=== PATIENT | female | born 1995 | race Caucasian/White ===

== ENCOUNTER 2016-12-22 17:28 | Emergency (ER) | payer MEDICAID ==
[~2016-12-22] VITALS: Ht 172.7 cm; Wt 58.6 kg
[~2016-12-22 17:28] MED LIST: ALBU8.5H5 INH; DIVA500T2 PO; LORA-446 PO; LORAZEPAM PO
[2016-12-22] MEDS ORDERED: SODIUM CHLORIDE 0.9% 1,000ML IV ONE (18:00)
[2016-12-22] MEDS ORDERED: SODIUM CHLORIDE FLUSH 10ML SYR IVF ONE (18:00)
[2016-12-22] MEDS ORDERED: ONDANSETRON 2MG/ML, 2ML IVPush ONE (18:00)
[2016-12-22 18:24] LABS: ASPARTATE AMINO TRANSFERASE 15 U/L (15-37); BLOOD UREA NITROGEN 9 mg/dL (7-18)
[2016-12-22] MEDS ORDERED: ONDANSETRON 2MG/ML, 2ML ONE (18:52)
[2016-12-22] MEDS ORDERED: KETOROLAC 30 MG/1 ML IVPush ONE (19:00)
[2016-12-22] MEDS ORDERED: KETOROLAC 30 MG/1 ML ONE (19:14)
[2016-12-22] MEDS ORDERED: CEFTRIAXONE PMX 1GM/50ML 50 ML ONE (19:53)
[2016-12-22] MEDS ORDERED: CEFTRIAXONE PMX 1GM/50ML 50 ML IV ONE (20:00)
[2016-12-22 20:03] VITALS: BP 109/44
[2016-12-22] MEDS ORDERED: HYDROcodone/APAP 5/325 TABLET ONE (20:20)
[2016-12-22] MEDS ORDERED: HYDROcodone/APAP 5/325 TABLET PO ONE (20:30)
== END 2016-12-22 20:50 | disposition home or self-care (01) ==
LOC: ED 20:15
DX: N10 Acute pyelonephritis (principal); R31.9 Hematuria, unspecified; N39.0 Urinary tract infection, site not specified; G40.909 Epilepsy, unspecified, not intractable, without status epilepticus; J45.909 Unspecified asthma, uncomplicated; Z90.49 Acquired absence of other specified parts of digestive tract; Z87.442 Personal history of urinary calculi; Z97.5 Presence of (intrauterine) contraceptive device
CPT/HCPCS: 36415; 74176; 80053; 81001; 84703; 85025; 87077; 87086; 87186; 96361; 96365; 96375; 99285; J0696; J1885; J2405; J7030

== ENCOUNTER 2019-09-25 12:08 | Emergency (ER) | payer MEDICAID ==
[~2019-09-25] VITALS: Ht 172.7 cm; Wt 66.8 kg
--- NOTE | 2019-09-25 12:25 | NUR ---
EDMD AT BEDSIDE TO EVALUATE AT THIS TIME.
--- NOTE | 2019-09-25 12:25 | NUR ---
FIRST CONTACT WITH PT. PT STATES "I WENT TO THE [facility] THEY CHECKED ME OUT SHE SAID SHE'S ALMOST 100% SURE IT'S MY APPENDIX AND TO COME HERE". RLQ ABD PAIN WITH N/D STARTED 3-4 DAYS AGO. PT'S AOX4. RESPS EVEN AND UNLABORED. BP/SPO2 MONITORS IN PLACE. CALL LIGHT WITHIN REACH.
[2019-09-25 12:55] LABS: BASOPHILS # (AUTO) 0.04 x10^3/uL (0-0.1); BASOPHILS % (AUTO) 1 % (0-1); EOSINOPHILS # (AUTO) 0.14 x10^3/uL (0-0.4); EOSINOPHILS % (AUTO) 2 % (1-7); LYMPHOCYTES # (AUTO) 2.01 x10^3/uL (1-3.4); LYMPHOCYTES % (AUTO) 29 % (22-44); MD NO; MEAN CORPUSCULAR HEMOGLOBIN 33.2 pg (27.0-34.8); MEAN CORPUSCULAR HGB CONC 33.9 g/dL (32.4-35.8); MEAN PLATELET VOLUME 7.4 fL (7.4-10.4); MONOCYTES # (AUTO) 0.79 x10^3/uL (0.2-0.8); MONOCYTES % (AUTO) 11 % (2-9); NEUTROPHILS # (AUTO) 4.02 x10^3/uL (1.8-6.8); NEUTROPHILS % (AUTO) 58 % (42-75); PLATELET COUNT 244 x10^3/uL (130-400); RED BLOOD COUNT 4.45 x10^6/uL (3.82-5.3); RED CELL DISTRIBUTION WIDTH 13.3 % (9.6-15.2)
[2019-09-25 13:06] LABS: ALANINE AMINOTRANSFERASE 17 U/L (12-78); ALBUMIN 3.8 g/dL (3.4-5.0); ANION GAP 6 mmol/L (5-15); CALCIUM 9.2 mg/dL (8.5-10.1); CHLORIDE 106 mmol/L (98-107); CREATININE 0.83 mg/dL (0.55-1.02)
[2019-09-25 13:11] LABS: ALKALINE PHOSPHATASE 85 U/L (45-117); BILIRUBIN,TOTAL 0.4 mg/dL (0.2-1.0); TOTAL PROTEIN 7.8 g/dL (6.4-8.2)
[2019-09-25] MEDS ORDERED: MORPHINE SULFATE 4 MG/ML, 1ML ONE ×2 (13:36→14:55)
[2019-09-25] MEDS ORDERED: ONDANSETRON 2MG/ML, 2ML ONE (13:36)
[2019-09-25] MEDS: MORPHINE SULFATE 4 MG/ML, 1ML IVPush PRN ×2 (13:48→15:32)
--- NOTE | 2019-09-25 13:50 | NUR ---
PT AMB TO BR AND BACK TO ROOM WITH STEADY GAIT.
--- NOTE | 2019-09-25 13:55 | NUR ---
PT MEDICATED PER EMAR. PT TOLERATED WELL.
[2019-09-25] MEDS ORDERED: ONDANSETRON 2MG/ML, 2ML IVPush ONE (14:00)
--- NOTE | 2019-09-25 14:09 | NUR ---
PT TO CT AT THIS TIME.
--- NOTE | 2019-09-25 14:20 | NUR ---
PT BACK TO ROOM FROM CT AT THIS TIME.
[2019-09-25] MEDS ORDERED: OMNIPAQUE 350 MG/ML, 100ML BOTTLE ONE (14:44)
--- NOTE | 2019-09-25 14:56 | NUR ---
PT IN US AT THIS TIME.
--- NOTE | 2019-09-25 15:21 | NUR ---
PT BACK TO ROOM FROM US AT THIS TIME.
--- NOTE | 2019-09-25 15:32 | NUR ---
PT MEDICATED PER EMAR. PT TOLERATED WELL.
[2019-09-25] MEDS ORDERED: KETOROLAC 30 MG/1 ML ONE (15:44)
[2019-09-25] MEDS ORDERED: KETOROLAC 30 MG/1 ML IVPush ONE (16:00)
--- NOTE | 2019-09-25 16:33 | NUR ---
EDMD AT BEDSIDE TO EXPLAIN ALL RESULTS AT THIS TIME.
[2019-09-25 16:37] VITALS: BP 106/70
--- NOTE | 2019-09-25 16:50 | NUR ---
Patient given discharge instructions and they have confirmed that they understand the instructions.
== END 2019-09-25 16:52 | disposition home or self-care (01) ==
LOC: ED 13:15
DX: R10.84 Generalized abdominal pain (principal); R11.0 Nausea; R63.0 Anorexia; J45.909 Unspecified asthma, uncomplicated; F17.200 Nicotine dependence, unspecified, uncomplicated; Z90.49 Acquired absence of other specified parts of digestive tract
CPT/HCPCS: 36415; 74177; 76830; 80053; 83690; 84703; 85025; 96374; 96375; 96376; 99285; J1885; J2270; J2405; Q9967

== ENCOUNTER 2019-12-28 02:37 | Emergency (ER) | payer MEDICAID ==
[~2019-12-28] VITALS: Ht 170.2 cm; Wt 69.0 kg
[2019-12-28 02:46] VITALS: BP 119/69
--- NOTE | 2019-12-28 03:00 | NUR ---
BAR BACK: REDD JACQUES GATHERED ALL BELONGINGS INTO BAG (1) AND PLACED IN LOCKER FOR SAFE KEEPING.
[2019-12-28 03:28] LABS: BASOPHILS # (AUTO) 0.04 x10^3/uL (0-0.1); BASOPHILS % (AUTO) 1 % (0-1); EOSINOPHILS # (AUTO) 0.17 x10^3/uL (0-0.4); EOSINOPHILS % (AUTO) 2 % (1-7); LYMPHOCYTES # (AUTO) 2.71 x10^3/uL (1-3.4); LYMPHOCYTES % (AUTO) 37 % (22-44); MD NO; MEAN CORPUSCULAR HEMOGLOBIN 32.5 pg (27.0-34.8); MEAN CORPUSCULAR HGB CONC 33.4 g/dL (32.4-35.8); MEAN CORPUSCULAR VOLUME 97.4 fL (80-100); MEAN PLATELET VOLUME 7.3 fL (7.4-10.4); MONOCYTES # (AUTO) 0.49 x10^3/uL (0.2-0.8); MONOCYTES % (AUTO) 7 % (2-9); NEUTROPHILS # (AUTO) 3.97 x10^3/uL (1.8-6.8); NEUTROPHILS % (AUTO) 54 % (42-75); PLATELET COUNT 262 x10^3/uL (130-400); RED BLOOD COUNT 4.71 x10^6/uL (3.82-5.3); RED CELL DISTRIBUTION WIDTH 13.9 % (9.6-15.2)
[2019-12-28 03:37] LABS: ALANINE AMINOTRANSFERASE 29 U/L (12-78); ANION GAP 7 mmol/L (5-15); CALCIUM 8.8 mg/dL (8.5-10.1); CHLORIDE 114 mmol/L (98-107); SALICYLATE LEVEL 2.6 mg/dL (2.8-20.0)
[2019-12-28 03:40] LABS: ALKALINE PHOSPHATASE 68 U/L (45-117); BILIRUBIN,TOTAL 0.2 mg/dL (0.2-1.0); CREATININE 0.73 mg/dL (0.55-1.02); TOTAL PROTEIN 7.8 g/dL (6.4-8.2)
[2019-12-28 03:44] LABS: AMPHETAMINE SCREEN, URINE Negative (Negative); BARBITURATE SCREEN, URINE Negative (Negative); BENZODIAZEPINE SCREEN, URINE Positive (Negative); CANNABINOID SCREEN, URINE Negative (Negative); COCAINE SCREEN, URINE Negative (Negative); METHADONE SCREEN, URINE Negative (Negative); OPIATE SCREEN, URINE Negative (Negative)
--- NOTE | 2019-12-28 04:00 | NUR ---
HANDICAPPER HARNESS RACING: SITTER REQUESTED FROM [facility]. PT IN SECURED ROOM WITH CAMERA AT THIS TIME.
--- NOTE | 2019-12-28 04:29 | NUR ---
SLEEPING IN NO ACUTE DISTRESS, EVEN UNLABORED RESPIRATIONS. ROOM SECURED FOR SAFETY.
[2019-12-28] MEDS ORDERED: NEOSPORIN OINT. PKT 1 PACKET ONE (05:30)
--- NOTE | 2019-12-28 05:32 | NUR ---
PT SLEEPING ON GURNEY, NO ACUTE DISTRESS, EVEN AND UNLABORED RESPIRARTIONS. ROOM SECURED FOR SAFETY.
--- NOTE | 2019-12-28 07:02 | NUR ---
REPORT GIVEN TO DARIEN YANEZ.
--- NOTE | 2019-12-28 07:08 | NUR ---
REPORT RECEIVED FROM FERNY YANEZ.
--- NOTE | 2019-12-28 07:58 | NUR ---
PT SLEEPING ON GURNEY, NO ACUTE DISTRESS, EVEN AND UNLABORED RESPIRARTIONS. ROOM SECURED FOR SAFETY. SITTER MONITORING FROM [facility] FOR SAFETY.
--- NOTE | 2019-12-28 08:27 | NUR ---
DIET TRAY ORDERED AT THIS TIME.
--- NOTE | 2019-12-28 09:07 | NUR ---
MEAL TRAY PROVIDED AT THIS TIME.
--- NOTE | 2019-12-28 09:18 | NUR ---
PT'S SISTER'S NUMBER [phone]
--- NOTE | 2019-12-28 09:53 | NUR ---
PT IS NOT ABLE TO DO BRETHALYZER AT THIS TIME.
--- NOTE | 2019-12-28 10:18 | NUR ---
Silva hodges in ED - 12/28/19 at 1019 by ROBERT PER PROTOCOL, INSULIN DRIP RATE IS 6UNITS/HR AT THIS TIME D/T BG 480.
--- NOTE | 2019-12-28 10:39 | NUR ---
ALEXYZER .105 AT THIS TIME.
--- NOTE | 2019-12-28 10:51 | NUR ---
REFERENCE DATA EXPERT AT BEDSIDE TO EVALUATE AT THIS TIME.
--- NOTE | 2019-12-28 10:54 | NUR ---
water provided per request at this time.
--- NOTE | 2019-12-28 11:28 | NUR ---
DIET TRAY ORDERED AT THIS TIME.
[2019-12-28] MEDS ORDERED: DIAZEPAM 2 MG TABLET PO PRN (12:00)
[2019-12-28] MEDS ORDERED: RISPERIDONE 1 MG TABLET PO SCH (12:00)
[2019-12-28] MEDS ORDERED: LAMOTRIGINE 25 MG TABLET PO SCH (12:00)
[2019-12-28] MEDS ORDERED: RISPERIDONE 2 MG TABLET ONE (12:14)
--- NOTE | 2019-12-28 12:16 | NUR ---
MEDICATION ORDERED FROM PHARMACY AT THIS TIME.
--- NOTE | 2019-12-28 12:18 | NUR ---
BRETHALYZER .071 AT THIS TIME.
--- NOTE | 2019-12-28 12:24 | NUR ---
PT MEDICATED PER EMAR. PT TOLERATED WELL. ROOM REMAINS SECURE. SITTER MONITORING FROM [facility] FOR SAFETY.
--- NOTE | 2019-12-28 12:29 | NUR ---
PT'S BHAVESH'S NUMBER [phone]
--- NOTE | 2019-12-28 13:37 | NUR ---
REPORT GIVEN TO [facility] AT THIS TIME.
--- NOTE | 2019-12-28 13:41 | NUR ---
Donato from [facility] accepts patient. Accepting Dr. Mendez. Can send to [facility].
--- NOTE | 2019-12-28 13:42 | NUR ---
Break RN: assumed care of pt for primary RN lunch coverage only. pt resting in position of comfort with lights dimmed. no apaprent distress. room secure. sitter present for safety
--- NOTE | 2019-12-28 13:54 | NUR ---
[facility] faxed and spoke with Shahab. ETA from [facility] is 14:30
== END 2019-12-28 14:31 ==
LOC: ED 11:13
DX: R45.851 Suicidal ideations (principal); F10.120 Alcohol abuse with intoxication, uncomplicated; J45.909 Unspecified asthma, uncomplicated; G40.909 Epilepsy, unspecified, not intractable, without status epilepticus; F31.9 Bipolar disorder, unspecified; F17.210 Nicotine dependence, cigarettes, uncomplicated; Z90.49 Acquired absence of other specified parts of digestive tract; Y90.0 Blood alcohol level of less than 20 mg/100 ml
CPT/HCPCS: 36415; 80053; 80307; 85025; 99285

== ENCOUNTER 2020-01-08 03:13 | Emergency (ER) | payer MEDICAID ==
[~2020-01-08] VITALS: Ht 165.1 cm; Wt 65.0 kg
--- NOTE | 2020-01-08 03:16 | NUR ---
COMMERCIAL LEASING AGENT: DELICIA REQUESTED FROM [facility]
--- NOTE | 2020-01-08 03:30 | NUR ---
BEENA YANES FROM HOME PT REPORTS SA BY TAKING UNKNOWN [employer], TRAZODONE, AND VALIUM. DISCHARGED FROM [facility] YESTERDAY. PLACED VITALS SIGNS AND GRAIN BUYER. ROOM SECURED FOR SAFETY.
[2020-01-08 03:42] LABS: BASOPHILS # (AUTO) 0.08 x10^3/uL (0-0.1); BASOPHILS % (AUTO) 1 % (0-1); EOSINOPHILS # (AUTO) 0.26 x10^3/uL (0-0.4); EOSINOPHILS % (AUTO) 4 % (1-7); LYMPHOCYTES # (AUTO) 2.96 x10^3/uL (1-3.4); LYMPHOCYTES % (AUTO) 41 % (22-44); MD NO; MEAN CORPUSCULAR HEMOGLOBIN 32.8 pg (27.0-34.8); MEAN CORPUSCULAR HGB CONC 33.8 g/dL (32.4-35.8); MEAN CORPUSCULAR VOLUME 97.1 fL (80-100); MEAN PLATELET VOLUME 7.1 fL (7.4-10.4); MONOCYTES # (AUTO) 0.58 x10^3/uL (0.2-0.8); MONOCYTES % (AUTO) 8 % (2-9); NEUTROPHILS # (AUTO) 3.28 x10^3/uL (1.8-6.8); NEUTROPHILS % (AUTO) 46 % (42-75); PLATELET COUNT 250 x10^3/uL (130-400); RED BLOOD COUNT 4.35 x10^6/uL (3.82-5.3); RED CELL DISTRIBUTION WIDTH 13.9 % (9.6-15.2)
[2020-01-08 03:53] LABS: SALICYLATE LEVEL 2.5 mg/dL (2.8-20.0)
--- NOTE | 2020-01-08 04:16 | NUR ---
STRAIGHT CATH WITHOUT DIFFICULTY.
--- NOTE | 2020-01-08 04:27 | NUR ---
SLEEPING, EVEN AND UNLABORED RESPIRATIONS, VSS. SITTER AT BEDSIDE FOR SAFETY MONITORING.
[2020-01-08 04:35] LABS: ALANINE AMINOTRANSFERASE 19 U/L (12-78); ALBUMIN 3.7 g/dL (3.4-5.0); ANION GAP 9 mmol/L (5-15); CALCIUM 8.8 mg/dL (8.5-10.1); CHLORIDE 113 mmol/L (98-107); CREATININE 0.74 mg/dL (0.55-1.02)
[2020-01-08 04:37] LABS: ALKALINE PHOSPHATASE 69 U/L (45-117); BILIRUBIN,TOTAL 0.1 mg/dL (0.2-1.0); TOTAL PROTEIN 7.3 g/dL (6.4-8.2)
[2020-01-08 04:46] LABS: AMPHETAMINE SCREEN, URINE Negative (Negative); BARBITURATE SCREEN, URINE Negative (Negative); BENZODIAZEPINE SCREEN, URINE Positive (Negative); CANNABINOID SCREEN, URINE Positive (Negative); COCAINE SCREEN, URINE Negative (Negative); METHADONE SCREEN, URINE Negative (Negative); OPIATE SCREEN, URINE Negative (Negative)
[2020-01-08] MEDS ORDERED: SODIUM CHLORIDE 0.9% 1,000ML IVBOLUS ONE (05:30)
--- NOTE | 2020-01-08 06:33 | NUR ---
TASK RN: PT ON LEGAL HOLD PER ERP. PACKET FAXED TO [facility], [place], AND [facility] WITH CONFIRMATION OF RECEIPT.
--- NOTE | 2020-01-08 06:54 | NUR ---
REPORT RECEIVED FROM FERNY YANEZ. PT IS RESTING ON [employer] BLUFF ALERT AND AWAKE, CONNECTED TO ALL MONITORING, VSS. BREAKFAST TRAY ORDERED.
--- NOTE | 2020-01-08 06:57 | NUR ---
REPORT GIVEN TO ERICKA AT [facility]. PER ERICKA HE WILL RETURN CALL IF PT IS ACCEPTED.
[2020-01-08 07:56] VITALS: BP 97/51
--- NOTE | 2020-01-08 08:01 | NUR ---
PT DENIES SI/HI AT THIS TIME. STATES "I THINK I JUST NEED TO STOP DRINKING BECAUSE WHENEVER I DRINK I GET REALLY DEPRESSED". RESTING ON GURNEY W/ SITTER OUTSIDE ROOM. VSS. CAMACHO.
--- NOTE | 2020-01-08 09:07 | NUR ---
REPORT GIVEN TO EMS. PT IS READY FOR TRANSPORT. Addendum: 01/08/20 at 0908 by SELINACIAGA REPORT GIVEN TO EMS. BELONGINGS BAG GIVEN TO EMS. PT IS READY FOR TRANSPORT.
== END 2020-01-08 09:10 ==
LOC: ED 05:28
DX: T43.212A Poisoning by selective serotonin and norepinephrine reuptake inhibitors, intentional self-harm, initial encounter (principal); T14.91XA Suicide attempt, initial encounter; G92 Toxic encephalopathy; R11.10 Vomiting, unspecified; R94.31 Abnormal electrocardiogram [ECG] [EKG]; R41.82 Altered mental status, unspecified; G40.909 Epilepsy, unspecified, not intractable, without status epilepticus; F17.200 Nicotine dependence, unspecified, uncomplicated; J45.909 Unspecified asthma, uncomplicated; Z90.49 Acquired absence of other specified parts of digestive tract; Y92.89 Other specified places as the place of occurrence of the external cause; Y93.89 Activity, other specified; Y99.8 Other external cause status
CPT/HCPCS: 36415; 80053; 80307; 84703; 85025; 93005; 96360; 99285; J7030

== ENCOUNTER 2020-01-14 23:42 | Emergency (ER) | payer SELFPAY ==
[~2020-01-14] VITALS: Ht 172.7 cm; Wt 70.0 kg
[2020-01-14 23:52] VITALS: BP 106/67
--- NOTE | 2020-01-14 23:55 | NUR ---
ROBBIE FOR REPORTS OF WITNESSED SEIZURES BY HER SISTER X2. PT REPORTS SHE REMEMBERS THE FIRST SEIZURE, C/O LIMA NOW. EMS GAVE ZOFRAN 4MG ODT, PT DENIES CURRENT NAUSEA. PLACED VITAL SIGNS MONITORS. PROVIDER AT BEDSIDE FOR EVAL.
[2020-01-14] MEDS ORDERED: HYDR50CA PO (23:58)
[2020-01-14] MEDS ORDERED: ARIP15TA3 PO (23:59)
[2020-01-14] MEDS ORDERED: TRAZ50TA66 PO (23:59)
[2020-01-14] MEDS ORDERED: LAMO100T5 PO (23:59)
[2020-01-15] MEDS ORDERED: IBUPROFEN 200 MG TABLET PO ONE
[2020-01-15] MEDS ORDERED: IBUPROFEN 200 MG TABLET ONE (00:09)
[2020-01-15 00:17] LABS: BASOPHILS # (AUTO) 0.09 x10^3/uL (0-0.1); BASOPHILS % (AUTO) 1 % (0-1); EOSINOPHILS # (AUTO) 0.16 x10^3/uL (0-0.4); EOSINOPHILS % (AUTO) 1 % (1-7); LYMPHOCYTES # (AUTO) 1.99 x10^3/uL (1-3.4); LYMPHOCYTES % (AUTO) 17 % (22-44); MD NO; MEAN CORPUSCULAR HEMOGLOBIN 32.6 pg (27.0-34.8); MEAN CORPUSCULAR HGB CONC 33.5 g/dL (32.4-35.8); MEAN CORPUSCULAR VOLUME 97.5 fL (80-100); MEAN PLATELET VOLUME 7.2 fL (7.4-10.4); MONOCYTES # (AUTO) 0.96 x10^3/uL (0.2-0.8); MONOCYTES % (AUTO) 8 % (2-9); NEUTROPHILS # (AUTO) 8.24 x10^3/uL (1.8-6.8); NEUTROPHILS % (AUTO) 72 % (42-75); PLATELET COUNT 254 x10^3/uL (130-400); RED BLOOD COUNT 4.36 x10^6/uL (3.82-5.3); RED CELL DISTRIBUTION WIDTH 13.8 % (9.6-15.2)
[2020-01-15 00:26] LABS: ALBUMIN 3.9 g/dL (3.4-5.0); ANION GAP 5 mmol/L (5-15); CALCIUM 8.9 mg/dL (8.5-10.1); CHLORIDE 109 mmol/L (98-107); CREATININE 0.73 mg/dL (0.55-1.02)
== END 2020-01-15 01:04 ==
LOC: ED 01-15 00:11
DX: R56.9 Unspecified convulsions (principal); R51 Headache; R11.0 Nausea; R94.31 Abnormal electrocardiogram [ECG] [EKG]
CPT/HCPCS: 36415; 80048; 82040; 84703; 85025; 93005; 99284